=== PATIENT | female | born 1985 | race Caucasian/White ===

== ENCOUNTER 2016-06-23 12:56 | Emergency (ER) | payer OTHER ==
[2016-06-23 13:22] LABS: URINE APPEARANCE Clear; URINE BILIRUBIN Negative (NEGATIVE); URINE BLOOD Negative (NEGATIVE); URINE GLUCOSE (UA) Negative (NEGATIVE); URINE KETONE Negative (NEGATIVE); URINE NITRITE Negative (NEGATIVE); URINE PROTEIN Trace (NEGATIVE); URINE UROBILINOGEN 1.0 E.U/dl (0.2-1.0)
[2016-06-23 13:23] LABS: URINE BACTERIA MODERATE /hpf (NEGATIVE); URINE COLOR YELLOW; URINE LEUK ESTERASE 1+ (NEGATIVE); URINE RBC 0-3 /hpf (0-3)
[2016-06-23 13:24] LABS: URINE HYALINE CAST 0-3 /lpf
[2016-06-23] MEDS ORDERED: SODIUM CHLORIDE 1,000 ML IV STA (13:27)
--- NOTE | 2016-06-23 13:32 | PDOC ---
History of Present Illness - General Stated Complaint: DIZZINESS Time Seen by Provider: 06/23/16 13:05 History Source: Patient Exam Limitations: No Limitations - History of Present Illness Initial Comments: 06/23/16 13:27 This is a 31-year-old female with no significant past medical history who presents emergency department with a complaint of lightheadedness. Patient is , currently 25 weeks who states she woke in her usual state of health this morning, had breakfast at approximately 9:30 AM (pancakes and coffee). She then went shopping today [employer] and noted that she became lightheaded and felt dizzy. She has had this in the past and after eating it resolves. Patient had peanuts and vitamin water. Patient states her symptoms did not immediately resolve so she had several coming bares. Patient states she continued to have symptoms. She contacted her OB who told her to go to the nearest ER. Patient denies pain of any kind. Patient states during this episode her heart was racing. She denies shortness of breath. She denies abdominal pain. Positive movement. She denies fevers or chills. She denies actual syncopal event. Symptoms improved upon arrival to the ER PMH: Denies PSH: Gastric sleeve 1 year ago Medication: vitamins Social: Denies alcohol, drug, cigarette use. Patient's ALLERGIC to azithromycin. 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 HEAD, EYES, EARS, NOSE AND THROAT: No: change in vision, ear pain, discharge, sore throat, throat swelling. CARDIOVASCULAR: No: chest pain, lightheadedness, palpitations, syncope RESPIRATORY: No: cough, shortness of breath, wheezing, hemoptysis, stridor. GASTROINTESTINAL: No: nausea, vomiting, diarrhea, abdominal cramping, rectal bleeding, constipation. GENITOURINARY: No: dysuria, hematuria, frequency, urgency, flank pain. MUSCULOSKELETAL: No: back pain, neck pain, joint pain, muscle swelling or pain SKIN: No: lesions, pallor, rash or easy bruising. NEUROLOGIC: Yes: dizziness, lightheadedness No: headache, vertigo, paresthesias , weakness ENDOCRINE: No: unexplained weight gain or loss HEMATOLOGIC/LYMPHATIC: No: anemia, easy bleeding, swelling nodes. GENERAL: The patient is in no acute distress. HEAD: Normal with no signs of trauma. EYES: PERRLA, EOMI, sclera anicteric, conjunctiva clear. ENT: Ears normal, nares patent, oropharynx clear without exudates. Moist mucous membranes. NECK: Normal range of motion, supple without lymphadenopathy, JVD, or masses. LUNGS: Breath sounds equal, clear to auscultation bilaterally. No wheezes, and no crackles. HEART:Regular rate and rhythm, normal S1 and S2 without murmur, rub or gallop. ABDOMEN: Soft, gravid, nontender, normoactive bowel sounds. EXTREMITIES: Normal range of motion, no edema. No clubbing or cyanosis. No erythema, or tenderness. NEUROLOGICAL: Cranial nerves II through XII grossly intact. Normal speech. No focal neurological deficits. MUSCULOSKELETAL: Back non-tender to palpation, no CVA tenderness SKIN: Warm, Dry, normal turgor, no rashes or lesions noted. 06/23/16 13:30 Past History - Past Medical History Allergies/Adverse Reactions: Allergies Allergy/AdvReac Type Severity Reaction Status Date / Time azithromycin Allergy Mild Verified 06/23/16 13:58 Home Medications: Ambulatory Orders Cephalexin [Keflex] 250 mg PO Q6H #28 capsule 06/23/16 Vits #93/Iron Fum/FA [ Formula Tablet] 1 each PO DAILY Heart Score/ECG Review #1 ECG reviewed & interpreted by me at: 16:16 General ECG Interpretation: Sinus Rhythm, Normal Rate, No acute ischemic changes Compared to previous ECG there are: Other (Abnormal intervals, QTc: 487ms) ED Treatment Course - LABORATORY CBC & Chemistry Diagram: 06/23/16 13:45 06/23/16 13:45 - ADDITIONAL ORDERS Additional order review: Laboratory Results 06/23/16 13:05 Urine Color Yellow Urine Appearance Clear Urine pH 6.0 Ur Specific [place] 1.025 Urine Protein Trace Urine Glucose (UA) Negative Urine Ketones Negative Urine Blood Negative Urine Nitrite Negative Urine Bilirubin Negative Urine Urobilinogen 1.0 e.u/dl Ur Leukocyte Esterase 1+ H Urine RBC 0-3 Urine WBC 3-5 Ur Epithelial Cells Few Urine Bacteria Moderate Hyaline Casts 0-3 Medical Decision Making - Medical Decision Making 06/23/16 13:31 Pt has a history of what sounds like orthostatis Presents due to prolonged symptoms Will do basic labs US IV fluids Will discharge to home 06/23/16 15:00 Laboratory Tests 06/23/16 06/23/16 06/23/16 13:05 13:45 13:45 WBC 14.8 H Hgb 12.1 Hct 35.2 Plt Count 313 Neutrophils % 83.5 H Lymphocytes % 10.9 Sodium 134 L Potassium 4.2 Chloride 107 Carbon Dioxide 22 BUN 8 Creatinine 0.4 L Random Glucose 92 Total Bilirubin < 0.3 Urine Blood Negative Urine Nitrite Negative Ur Leukocyte Esterase 1+ H Urine RBC 0-3 Urine WBC 3-5 Ur Epithelial Cells Few Urine Bacteria Moderate 06/23/16 16:16 PT s/p US Imaging reviewed and demonstrates FHR 135 bpm Pt US still not read Pt would like to go home Will ask her to follow up with OB Return to the ER for any other concerns or complaints U/S resulted (+) IUP FHR 155 Cervix long and closed *DC/Admit/Observation/Transfer Diagnosis at time of Disposition: Dizziness - Discharge Dispostion Disposition: HOME Condition at time of disposition: Improved Admit: No - Prescriptions Prescriptions: Cephalexin [Keflex] 250 mg PO Q6H #28 capsule - Patient Instructions Printed Discharge Instructions: DI for Dizziness-Nonvertigo Additional Instructions: Thank you for coming in to the ER today Please continue to ear small meals through out the day Please review your results Please follow up with your primary steel die engraver Return to the ER for recurrence of symptoms or any new concerns or complaints Please call the ER for Ultrasound results
[2016-06-23 13:57] LABS: BASOPHIL 0.9 % (0-2.0); EOSINOPHIL 0.3 % (0-4.5); MCHC 34.5 g/dl (32.0-36.0); MEAN CELL VOLUME 89.8 fl (80-96); MEAN PLT VOLUME 7.6 fl (7.5-11.1); NEUTROPHILS 83.5 % (42.8-82.8); PLATELET COUNT 313 K/MM3 (134-434); RDW 12.9 % (11.6-15.6); WHITE BLOOD COUNT 14.8 K/mm3 (4.0-10.0)
[2016-06-23 13:58] VITALS: BP 101/63; PULSE 92; TEMP 98.8; BMI 33.5
[2016-06-23 14:11] LABS: ALBUMIN 3.1 g/dl (3.5-5.0); ALK PHOS 72 U/L (32-92); ANION GAP 5 (8-16); CALCIUM 8.3 mg/dl (8.4-10.2); CO2 22 mmol/L (22-28); COCKROFT - GAULT 278.3155; CREATININE 0.4 mg/dl (0.6-1.3); GLUCOSE,RANDOM 92 mg/dl (74-106); SGOT/AST 33 U/L (10-42); SGPT/ALT 24 U/L (10-40); TOT PROT 6.4 g/dl (6.4-8.3)
[2016-06-23 14:54] LABS: BILIRUBIN,TOTAL < 0.3 mg/dl (0.2-1.0)
--- NOTE | 2016-06-27 09:14 | EKG ---
Test Reason : Blood Pressure : / mmHG Vent. Rate : 078 BPM Atrial Rate : 078 BPM P-R Int : 164 ms QRS Dur : 090 ms QT Int : 428 ms P-R-T Axes : 025 011 004 degrees QTc Int : 487 ms SINUS RHYTHM LEFT VENTRICULAR HYPERTROPHY NONSPECIFIC T WAVE ABNORMALITY PROLONGED QT ABNORMAL ECG NO PREVIOUS ECGS AVAILABLE Confirmed by MARIAH COSTA MD ([id number] on 06/27/2016 9:14:14 AM Referred By: DR SOTO Confirmed By:MARIAH COSTA MD
== END 2016-06-23 16:39 | disposition home or self-care (01) ==
LOC: FER 12:56
PROC: 3E0337Z Introduction of Electrolytic and Water Balance Substance into Peripheral Vein, Percutaneous Approach (ICD-10-PCS; principal; 2016-06-23)
DX: R42 Dizziness and giddiness (principal)
CPT/HCPCS: 36415; 76815-TC; 80053; 81003; 81015; 85025; 87086; 93005; 99283-25